=== PATIENT | female | born 1955 | race Asian ===

== ENCOUNTER 2017-05-20 06:12 | Day surgery (SDC) | payer OTHER ==
[2017-05-20] MEDS ORDERED: MIDAZOLAM 1 MG/ML 2 ML INJ ×2 (08:31)
[2017-05-20] MEDS ORDERED: FENTAnyl 50 MCG/ML VIAL (08:32)
== END 2017-05-20 16:43 | disposition home or self-care (01) ==
LOC: GIL 06:12
DX: Z12.11 Encounter for screening for malignant neoplasm of colon (principal); K64.4 Residual hemorrhoidal skin tags
CPT/HCPCS: 45378

== ENCOUNTER → 2018-05-02 | Outpatient (CLI) | payer OTHER | END | disposition home or self-care (01) | LOC: HKI 13:24 | DX: M17.11 Unilateral primary osteoarthritis, right knee (principal); I10 Essential (primary) hypertension | CPT/HCPCS: 73564; 73564-RT ==

== ENCOUNTER 2018-08-09 05:51 | Inpatient (IN) | payer OTHER ==
[2018-08-09] MEDS: CEFAZOLIN 1 GM/50 ML (PMX) 50 ML IVPB (06:00)
[2018-08-09] MEDS: ACETAMINOPHEN 500 MG TAB PO (06:00)
[2018-08-09] MEDS: oxyCODONE (CR) 10 MG TAB [oxyCONTIN] PO (07:08)
[2018-08-09] MEDS: ONDANSETRON 4 MG INJ IV ×7 (07:08→22:00)
[2018-08-09] MEDS: LANSOPRAZOLE 30 MG CAP PO (07:08)
[2018-08-09] MEDS: LACTATED RINGER'S 1,000 ML IV ×2 (07:09→10:26)
[2018-08-09] MEDS: DEXAMETHASONE 4 MG/ML 1 ML INJ IV (07:09)
[2018-08-09] MEDS ORDERED: CEFAZOLIN 1 GM INJ (07:12)
[2018-08-09] MEDS ORDERED: NEOSTIGMINE 3 MG/3 ML SYRINGE (07:12)
[2018-08-09] MEDS ORDERED: ROCURONIUM 50 MG INJ (07:12)
[2018-08-09] MEDS ORDERED: GLYCOPYRROLATE 0.4 MG INJ (07:12)
[2018-08-09] MEDS ORDERED: PROPOFOL 20 ML (07:12)
[2018-08-09] MEDS ORDERED: FENTAnyl 50 MCG/ML VIAL (07:13)
[2018-08-09] MEDS ORDERED: MIDAZOLAM 1 MG/ML 2 ML INJ (07:13)
[2018-08-09] MEDS ORDERED: ONDANSETRON 4 MG INJ (07:13)
[2018-08-09] MEDS ORDERED: DEXAMETHASONE 4 MG/ML 5 ML INJ (07:13)
[2018-08-09] MEDS: ACETAMINOPHEN 1000MG/100ML IV 100 ML IVPB (07:15)
[2018-08-09] MEDS ORDERED: morphine SULFATE/PF (10 MG/10 ML) INJ (07:17)
[2018-08-09] MEDS ORDERED: NALOXONE (0.4 MG/ML) INJ IV ×2 (07:30→09:30)
[2018-08-09] MEDS ORDERED: DIPHENHYDRAMINE 50 MG INJ IV ×2 (07:30)
[2018-08-09] MEDS ORDERED: ALBUTEROL 0.083% (NEB) 2.5 MG/3 ML AMP HHN (07:30)
[2018-08-09] MEDS ORDERED: EPHEDrine 25 MG/5 ML SYG IV (07:30)
[2018-08-09] MEDS ORDERED: LABETALOL HCL 20MG INJ IV (07:30)
[2018-08-09] MEDS ORDERED: OXYCODONE/ACETAMINOPHEN (5/325) TAB PO ×2 (07:30)
[2018-08-09] MEDS ORDERED: NALBUPHINE HCL (10 MG/1 ML) INJ IV (07:30)
[2018-08-09] MEDS ORDERED: TRIMETHOBENZAMIDE 100 MG/ML VIAL IM ×2 (07:30)
[2018-08-09] MEDS ORDERED: MEPERIDINE 25 MG INJ IV (07:30)
[2018-08-09] MEDS ORDERED: MIDAZOLAM 1 MG/ML 2 ML INJ IV (07:30)
[2018-08-09] MEDS ORDERED: IPRATROPIUM (NEB) 0.5 MG/2.5 ML AMP HHN (07:30)
[2018-08-09] MEDS ORDERED: FENTAnyl 50 MCG/ML VIAL IV ×3 (07:30)
[2018-08-09] MEDS ORDERED: HYDROmorphONE 0.5 MG/0.5 ML SYG IV ×2 (07:30)
[2018-08-09] MEDS ORDERED: hydrALAzine 20 MG INJ IV (07:30)
[2018-08-09] MEDS ORDERED: HYDROmorphONE 1 MG/5 ML IV SYRINGE IV ×3 (07:30)
[2018-08-09] MEDS: HIP PAIN COCKTAIL VANCO INJ (08:33)
[2018-08-09] MEDS: TRANEXAMIC ACID 1GM/100ML(PMX) 100 ML INTRA-OP X1 IVPB (08:34)
[2018-08-09] MEDS: TRANEXAMIC ACID 1GM/100ML(PMX) 100 ML PRE-OP X1 IVPB ×2 (08:34→09:08)
[2018-08-09] MEDS ORDERED: ROPIVACAINE 0.5 % 30 ML VIAL (08:35)
[2018-08-09] MEDS ORDERED: NACL 0.9% 3 ML SYG IV (09:30)
[2018-08-09] MEDS: DOCUSATE SODIUM 100 MG CAP PO (10:41)
[2018-08-09] MEDS: CEFAZOLIN 2 GM/50 ML (PMX) 50 ML IVPB ×2 (10:49→18:55)
[2018-08-09] MEDS: POLYMYXIN B 500000 UNIT INJ (12:11)
[2018-08-09] MEDS: BACITRACIN 50000 UNITS INJ (12:12)
[2018-08-09] MEDS: GABAPENTIN 100 MG CAP PO ×2 (13:00→22:34)
[2018-08-09] MEDS: METOCLOPRAMIDE 10 MG INJ IV ×2 (14:18→22:35)
[2018-08-09] MEDS: FAMOTIDINE 20 MG INJ IV (14:18)
[2018-08-09] MEDS: METOPROLOL 25 MG TAB PO (15:16)
[2018-08-09 15:34] LABS: ADD MAN DIFF? NO
[2018-08-09 15:36] LABS: WHITE BLOOD COUNT 14.4 10^3/ul (4.8-10.8)
[2018-08-09 15:36] LABS: BASOPHILS % 0.1 % (0.0-2.0); HEMATOCRIT 35.5 % (37.0-47.0); HEMOGLOBIN 11.8 g/dl (12.0-16.0); LYMPHOCYTES # 0.8 10^3/ul (0.8-2.9); LYMPHOCYTES % 5.7 % (15.0-51.0); MEAN CORPUSCULAR HEMOGLOBIN 26.5 pg (29.0-33.0); MEAN CORPUSCULAR HGB CONC 33.2 g/dl (32.0-37.0); MEAN CORPUSCULAR VOLUME 79.8 fl (82.0-101.0); MONOCYTE # 0.2 10^3/ul (0.3-0.9); MONOCYTES % 1.5 % (0.0-11.0); NEUTROPHIL # 13.2 10^3/ul (1.6-7.5); NEUTROPHILS % 92.1 % (39.0-77.0); PLATELET COUNT 160 10^3/UL (140-415); RED BLOOD COUNT 4.45 10^6/ul (4.20-5.40); RED CELL DISTRIBUTION WIDTH 14.2 % (11.5-14.5)
[2018-08-09 16:06] LABS: THYROID STIMULATING HORMONE 0.628 MIU/L (0.465-4.680)
[2018-08-09 16:57] LABS: ALANINE AMINOTRANSFERASE 39 IU/L (13-69); ALBUMIN 3.7 g/dl (3.3-4.9); ALBUMIN/GLOBULIN RATIO 1.42; ALKALINE PHOSPHATASE 48 IU/L (42-121); ANION GAP 11 (5-13); ASPARTATE AMINO TRANSFERASE 23 IU/L (15-46); BILIRUBIN,INDIRECT 0.3 mg/dl (0-1.1); BILIRUBIN,TOTAL 0.3 mg/dl (0.2-1.3); BLOOD UREA NITROGEN 7 mg/dl (7-20); CALCIUM 8.6 mg/dl (8.4-10.2); CARBON DIOXIDE 22 mmol/L (21-31); CHLORIDE 104 mmol/L (97-110); CREATININE 0.48 mg/dl (0.44-1.00); Estimated GFR > 60 mL/min (>60); GLUCOSE 180 mg/dl (70-220); MAGNESIUM 1.2 mg/dl (1.7-2.5); POTASSIUM 3.5 mmol/L (3.5-5.1); SODIUM 137 mmol/L (135-144); TOTAL PROTEIN 6.3 g/dl (6.1-8.1)
[2018-08-09 17:05] LABS: B-TYPE NATRIURETIC PEPTIDE 100 PG/ML (0-125)
[2018-08-09 17:34] LABS: TROPONIN-I < 0.012 ng/ml (0.000-0.120)
[2018-08-09] MEDS: POTASSIUM CHLORIDE 100 ML IVPB ×2 (17:54→23:33)
[2018-08-09] MEDS: MAGNESIUM SULFATE 4 GM/100 ML 100 ML IVPB (19:10)
[2018-08-09 22:18] LABS: TROPONIN-I < 0.012 ng/ml (0.000-0.120)
[2018-08-09] MEDS: METOPROLOL 50 MG TAB PO (22:34)
[2018-08-10] MEDS: CEFAZOLIN 2 GM/50 ML (PMX) 50 ML IVPB ×2 (02:00→03:25)
[2018-08-10] MEDS: ONDANSETRON 4 MG INJ IV (04:25)
[2018-08-10 07:29] LABS: ADD MAN DIFF? NO
[2018-08-10 07:36] LABS: ABNORMAL IP MESSAGE 1; BASOPHILS % 0.2 % (0.0-2.0); HEMATOCRIT 36.7 % (37.0-47.0); HEMOGLOBIN 12.3 g/dl (12.0-16.0); LYMPHOCYTES # 1.9 10^3/ul (0.8-2.9); LYMPHOCYTES % 10.9 % (15.0-51.0); MEAN CORPUSCULAR HEMOGLOBIN 26.7 pg (29.0-33.0); MEAN CORPUSCULAR HGB CONC 33.5 g/dl (32.0-37.0); MEAN CORPUSCULAR VOLUME 79.6 fl (82.0-101.0); MEAN PLATELET VOLUME 13.2 fl (7.4-10.4); MONOCYTE # 1.3 10^3/ul (0.3-0.9); MONOCYTES % 7.7 % (0.0-11.0); NEUTROPHIL # 13.9 10^3/ul (1.6-7.5); NEUTROPHILS % 80.7 % (39.0-77.0); PLATELET COUNT 182 10^3/UL (140-415); RED BLOOD COUNT 4.61 10^6/ul (4.20-5.40); RED CELL DISTRIBUTION WIDTH 14.3 % (11.5-14.5)
[2018-08-10 07:36] LABS: WHITE BLOOD COUNT 17.2 10^3/ul (4.8-10.8)
[2018-08-10 07:54] LABS: ANION GAP 7 (5-13); BLOOD UREA NITROGEN 8 mg/dl (7-20); CARBON DIOXIDE 28 mmol/L (21-31); CHLORIDE 105 mmol/L (97-110); CREATININE 0.58 mg/dl (0.44-1.00); Estimated GFR > 60 mL/min (>60); GLUCOSE 133 mg/dl (70-220); POTASSIUM 3.8 mmol/L (3.5-5.1); SODIUM 140 mmol/L (135-144)
[2018-08-10] MEDS: METOCLOPRAMIDE 10 MG INJ IV ×2 (07:58→18:26)
[2018-08-10] MEDS: GABAPENTIN 100 MG CAP PO ×3 (08:47→20:27)
[2018-08-10] MEDS: ASPIRIN (EC) 81 MG TAB PO ×2 (08:47→20:26)
[2018-08-10] MEDS: METOPROLOL 50 MG TAB PO ×2 (08:48→20:27)
[2018-08-10] MEDS ORDERED: CELECOXIB 100 MG CAP PO (09:00)
[2018-08-10] MEDS: oxyCODONE 5 MG TAB PO ×3 (09:16→21:59)
[2018-08-10 09:43] LABS: TROPONIN-I 0.029 ng/ml (0.000-0.120)
[2018-08-10] MEDS: morphine 2 MG INJ IV ×3 (11:26→20:27)
[2018-08-10] MEDS: CEFAZOLIN 1 GM/50 ML (PMX) 50 ML IVPB (14:27)
[2018-08-10 17:00] LABS: ADD UMIC NO; UR ASCORBIC ACID NEGATIVE (NEGATIVE); UR BILIRUBIN (Dip) NEGATIVE (NEGATIVE); UR BLOOD (Dip) NEGATIVE (NEGATIVE); UR CLARITY SLIGHTLY CLOUDY (CLEAR); UR COLOR YELLOW (YELLOW); UR GLUCOSE (Dip) NEGATIVE (NEGATIVE); UR KETONES (Dip) NEGATIVE (NEGATIVE); UR LEUKOCYTE ESTERASE (Dip) NEGATIVE Leu/ul (NEGATIVE); UR NITRITE (Dip) NEGATIVE (NEGATIVE); UR RBC 1 /HPF (0-5); UR SPECIFIC GRAVITY (Dip) 1.006 (1.003-1.030); UR TOTAL PROTEIN (Dip) NEGATIVE (NEGATIVE); UR UROBILINOGEN (Dip) NEGATIVE (NEGATIVE); UR WBC 1 /HPF (0-5)
[2018-08-10] MEDS: HYDROmorphONE 1 MG/ML SYG IV (17:27)
[2018-08-10] MEDS: traMADol 50 MG TAB PO ×2 (22:30→22:44)
[2018-08-10] MEDS: KETOROLAC 30 MG INJ IV (22:49)
[2018-08-10] MEDS: HYDROCODONE/APAP (5/325) TAB PO (23:24)
[2018-08-11] MEDS: KETOROLAC 30 MG INJ IV ×3 (05:02→18:35)
[2018-08-11 05:37] LABS: ADD MAN DIFF? NO
[2018-08-11 05:42] LABS: WHITE BLOOD COUNT 11.8 10^3/ul (4.8-10.8)
[2018-08-11 05:42] LABS: ABNORMAL IP MESSAGE 1; BASOPHILS % 0.3 % (0.0-2.0); EOSINOPHILS # 0.1 10^3/ul (0.0-0.5); EOSINOPHILS % 0.8 % (0.0-7.0); HEMATOCRIT 35.4 % (37.0-47.0); HEMOGLOBIN 11.6 g/dl (12.0-16.0); LYMPHOCYTES # 3.3 10^3/ul (0.8-2.9); LYMPHOCYTES % 27.7 % (15.0-51.0); MEAN CORPUSCULAR HEMOGLOBIN 26.1 pg (29.0-33.0); MEAN CORPUSCULAR HGB CONC 32.8 g/dl (32.0-37.0); MEAN CORPUSCULAR VOLUME 79.6 fl (82.0-101.0); MEAN PLATELET VOLUME 13.1 fl (7.4-10.4); MONOCYTE # 1.1 10^3/ul (0.3-0.9); MONOCYTES % 9.2 % (0.0-11.0); NEUTROPHIL # 7.3 10^3/ul (1.6-7.5); NEUTROPHILS % 61.6 % (39.0-77.0); PLATELET COUNT 166 10^3/UL (140-415); RED BLOOD COUNT 4.45 10^6/ul (4.20-5.40); RED CELL DISTRIBUTION WIDTH 14.8 % (11.5-14.5)
[2018-08-11 05:51] LABS: POSITIVE DIFF @See below
[2018-08-11 06:06] LABS: ANION GAP 6 (5-13); BLOOD UREA NITROGEN 10 mg/dl (7-20); CALCIUM 8.7 mg/dl (8.4-10.2); CARBON DIOXIDE 29 mmol/L (21-31); CHLORIDE 108 mmol/L (97-110); CREATININE 0.58 mg/dl (0.44-1.00); Estimated GFR > 60 mL/min (>60); GLUCOSE 112 mg/dl (70-220); POTASSIUM 3.6 mmol/L (3.5-5.1); SODIUM 143 mmol/L (135-144)
[2018-08-11] MEDS: PANTOPRAZOLE (EC) 40 MG TAB PO (06:31)
[2018-08-11] MEDS: morphine 2 MG INJ IV (07:21)
[2018-08-11] MEDS: APIXABAN 5 MG TABLET PO ×2 (09:28→21:55)
[2018-08-11] MEDS: HYDROCODONE/APAP (5/325) TAB PO ×4 (09:29→22:05)
[2018-08-11] MEDS: GABAPENTIN 100 MG CAP PO ×3 (09:29→21:55)
[2018-08-11] MEDS: METOPROLOL 50 MG TAB PO ×2 (09:37→21:56)
[2018-08-11] MEDS: POTASSIUM CHLORIDE 20 MEQ POWDER FOR ORAL SOLN PO (12:37)
[2018-08-11] MEDS: ACETAMINOPHEN 1000MG/100ML IV 100 ML IVPB (13:02)
[2018-08-11] MEDS: HYDROmorphONE 0.5 MG/0.5 ML SYG IV ×2 (14:25→21:11)
[2018-08-11] MEDS: METOCLOPRAMIDE 10 MG INJ IV ×2 (15:58→22:05)
[2018-08-11] MEDS: ACETAMINOPHEN 500 MG TAB PO (18:36)
[2018-08-12] MEDS: KETOROLAC 30 MG INJ IV ×3 (03:13→18:59)
[2018-08-12] MEDS: DOCUSATE SODIUM 100 MG CAP PO (04:15)
[2018-08-12] MEDS: HYDROmorphONE 0.5 MG/0.5 ML SYG IV ×2 (04:16→09:08)
[2018-08-12 05:42] LABS: ADD MAN DIFF? NO
[2018-08-12 05:46] LABS: ABNORMAL IP MESSAGE 1; BASOPHILS % 0.3 % (0.0-2.0); EOSINOPHILS # 0.4 10^3/ul (0.0-0.5); EOSINOPHILS % 3.1 % (0.0-7.0); HEMATOCRIT 37.1 % (37.0-47.0); HEMOGLOBIN 12.2 g/dl (12.0-16.0); LYMPHOCYTES # 2.8 10^3/ul (0.8-2.9); LYMPHOCYTES % 24.1 % (15.0-51.0); MEAN CORPUSCULAR HEMOGLOBIN 26.3 pg (29.0-33.0); MEAN CORPUSCULAR HGB CONC 32.9 g/dl (32.0-37.0); MEAN CORPUSCULAR VOLUME 80.1 fl (82.0-101.0); MEAN PLATELET VOLUME 13.2 fl (7.4-10.4); MONOCYTE # 0.8 10^3/ul (0.3-0.9); MONOCYTES % 7.3 % (0.0-11.0); NEUTROPHIL # 7.4 10^3/ul (1.6-7.5); NEUTROPHILS % 64.8 % (39.0-77.0); PLATELET COUNT 169 10^3/UL (140-415); RED BLOOD COUNT 4.63 10^6/ul (4.20-5.40)
[2018-08-12 05:46] LABS: WHITE BLOOD COUNT 11.5 10^3/ul (4.8-10.8)
[2018-08-12 06:03] LABS: POSITIVE DIFF @See below
[2018-08-12] MEDS: PANTOPRAZOLE (EC) 40 MG TAB PO (06:26)
[2018-08-12] MEDS: ACETAMINOPHEN 500 MG TAB PO ×4 (06:26→18:00)
[2018-08-12 06:30] LABS: ANION GAP 6 (5-13); BLOOD UREA NITROGEN 8 mg/dl (7-20); CALCIUM 8.8 mg/dl (8.4-10.2); CARBON DIOXIDE 30 mmol/L (21-31); CHLORIDE 106 mmol/L (97-110); CREATININE 0.48 mg/dl (0.44-1.00); Estimated GFR > 60 mL/min (>60); GLUCOSE 119 mg/dl (70-220); POTASSIUM 4.2 mmol/L (3.5-5.1); SODIUM 142 mmol/L (135-144)
[2018-08-12] MEDS: GABAPENTIN 100 MG CAP PO ×3 (09:16→20:22)
[2018-08-12] MEDS: APIXABAN 5 MG TABLET PO ×2 (09:16→20:22)
[2018-08-12] MEDS: METOPROLOL 50 MG TAB PO ×2 (09:16→20:25)
[2018-08-12] MEDS: OXYCODONE/ACETAMINOPHEN (5/325) TAB PO ×2 (14:13→15:52)
[2018-08-12] MEDS: HYDROCODONE/APAP (5/325) TAB PO (21:18)
== END 2018-08-12 21:40 | DRG 470 ==
LOC: REC 05:51 → MS1 08-11 19:17 → 6WM 15:35
PROVIDERS: Orthopaedic Surgery Adult Reconstructive Orthopaedic Surgery
PROC: 0SRC069 Replacement of Right Knee Joint with Oxidized Zirconium on Polyethylene Synthetic Substitute, Cemented, Open Approach (ICD-10-PCS; principal; 2018-08-09 07:30)
DX: M17.11 Unilateral primary osteoarthritis, right knee (principal); I48.92 Unspecified atrial flutter; I10 Essential (primary) hypertension; E66.9 Obesity, unspecified; Z68.27 Body mass index [BMI] 27.0-27.9, adult; I48.0 Paroxysmal atrial fibrillation; E83.42 Hypomagnesemia; R00.0 Tachycardia, unspecified
CPT/HCPCS: 71045; 73560; 80048; 80053; 81001; 81003; 83735; 83880; 84100; 84443; 84484; 85025; 86850; 86900; 86901; 87081; 88304; 88311; 93005; 93306; 97110; 97116; 97161; 97530